=== PATIENT | female | born 1945 | race Caucasian/White ===

== ENCOUNTER → 2016-05-06 | Outpatient (CLI) | payer OTHER ==
[~2016-05-06] MED LIST: ANAS1TAB PO; ASPI81CH37 CHEW; CALC600T10 PO; CEPH-460 PO; FENO160T PO; HUMALOG SQ; LEVEMIR SQ; LEVO137T2 PO; OMEG5CAP PO; PLAV75TA29 PO; SIMV40TA PO; TELM1TAB56 PO; TOPR50TA PO; ZOFR4TAB PO
== END ==
LOC: TMNT 11:38
PROVIDERS: ATTEND Internal Medicine
DX: E11.9 Type 2 diabetes mellitus without complications (principal); E03.9 Hypothyroidism, unspecified; I25.10 Atherosclerotic heart disease of native coronary artery without angina pectoris; M85.80 Other specified disorders of bone density and structure, unspecified site; Z85.3 Personal history of malignant neoplasm of breast
CPT/HCPCS: 97802

== ENCOUNTER 2016-07-23 22:31 | Emergency (ER) | payer OTHER ==
[~2016-07-23] VITALS: Ht 170.2 cm; Wt 65.0 kg
[2016-07-23 22:33] VITALS: BP 150/66; PULSE 85; RESP 16; TEMP 97.8; O2SAT 99
[2016-07-23] MEDS ORDERED: ONDANSETRON HCL 4 MG/2 ML VIAL IV PUSH ONE (23:00)
[2016-07-23] MEDS: MORPHINE SULFATE 4 MG/ML INJ IV PUSH ONE ×2 (23:00→23:04)
[2016-07-23] MEDS ORDERED: ONDANSETRON HCL 4 MG/2 ML VIAL IVP ONE (23:00)
[2016-07-23] MEDS ORDERED: SODIUM CHLORIDE 0.9% FLUSH 10 ML FLUSH IV FLUSH PRN (23:00)
[2016-07-23 23:31] LABS: AUTOMATED NEUTROPHIL # 7.6 TH/MM3 (1.8-7.7); BASOPHIL % 0.4 % (0.0-2.0); EOSINOPHIL # 0.2 TH/MM3 (0-0.4); EOSINOPHIL % 2.4 % (0.0-4.0); HEMATOCRIT 38.6 % (35.0-46.0); HEMO FLAGS DIFF FINAL; LYMPH % 15.7 % (9.0-44.0); LYMPHOCYTE # 1.5 TH/MM3 (1.0-4.8); MEAN CELL VOLUME 83.9 FL (80.0-100.0); MEAN CORPUSCULAR HEMOGLOBIN 28.7 PG (27.0-34.0); MEAN CORPUSCULAR HGB CONC 34.3 % (32.0-36.0); NEUT % 80.5 % (16.0-70.0); PLATELET COUNT 386 TH/MM3 (150-450); RED BLOOD COUNT 4.59 MIL/MM3 (4.00-5.30); RED CELL DISTRIBUTION WIDTH 13.8 % (11.6-17.2); WHITE BLOOD COUNT 9.4 TH/MM3 (4.0-11.0)
[2016-07-24 00:07] LABS: ALKALINE PHOSPHATASE 58 U/L (45-117); ALT (GPT) 19 U/L (10-53); ANION GAP 10 MEQ/L (5-15); AST (GOT) 22 U/L (15-37); BICARBONATE 27.4 MEQ/L (21.0-32.0); BLOOD UREA NITROGEN 45 MG/DL (7-18); CHLORIDE 104 MEQ/L (98-107); GLOMERULAR FILTRATION RATE 20 ML/MIN (>89); POTASSIUM 3.5 MEQ/L (3.5-5.1); SODIUM (NA) 141 MEQ/L (136-145); TOTAL BILIRUBIN ADULT 0.3 MG/DL (0.2-1.0)
--- NOTE | 2016-07-24 00:27 | PD ---
HPI . Abdominal pain Chief Complaint: Abdominal Pain Time Seen by Provider: 22:50 Travel History International Travel<30 days: No Contact w/Intl Traveler<30days: No Traveled to known affect area: No History of Present Illness HPI Patient presents with acute onset of abdominal pain. It started about 7 PM. She states that it is 7-8/10. It is on the left side. It is constant. It is associated with nausea and vomiting. She denies diarrhea. She denies urinary tract symptoms. She has not noticed a fever. She reports no exacerbating or relieving symptoms. PFSH Past Medical History Cancer: Yes (LEFT BREAST W/ LUMPECTOMY) Cardiac Catheterization: Yes Chest Pain: Yes (JAW PAIN) Coronary Artery Disease: Yes Diabetes: Yes Patient Takes Glucophage: Yes Hypertension: Yes Renal Failure: Yes (CKD LEVEL 3) Triglycerides - High: Yes Past Surgical History Appendectomy: Yes Cardiac Surgery: Yes (STENT) Coronary Stent: Yes Oral Surgery: Yes (WISDOM TEETH) Tonsillectomy: Yes Other Surgery: Yes (EYELID SX) Social History Alcohol Use: No Tobacco Use: No Substance Use: No Allergies-Medications (Allergen,Severity, Reaction): Coded Allergies: Demerol (Verified Allergy, Severe, 07/23/16) Levaquin (Verified Allergy, Severe, Hotflash, 07/23/16) Percocet (Verified Allergy, Severe, 07/23/16) Percodan (Verified Allergy, Severe, 07/23/16) Reported Meds & Prescriptions Reported Meds & Active Scripts Active Zofran (Ondansetron HCl) 4 Mg Tab 4 Mg PO Q6HR PRN Keflex (Cephalexin) 500 Mg Cap 500 Mg PO Q8H Reported Fish Oil 1200 mg ([place]-3 Fatty Acids) 1 Cap Cap 1 Caplet PO DAILY Calcium + D3 (Calcium Carbonate-Cholecalciferol) Unknown Strength Tab Unknown Dose PO BID Fenofibrate 160 Mg Tab 160 Mg PO DAILY Levothyroxine (Levothyroxine Sodium) 137 Mcg Tab 137 Mcg PO DAILY Micardis (Telmisartan) 80 Mg Tab 160 Mg PO DAILY Anastrozole 1 Mg Tab 1 Mg PO DAILY Levemir Inj (Insulin Detemir) 1,000 unit/ 10 ML Vial 40-50 Units SQ AM AND PM Do not mix with any other Insulin. Humalog Inj (Insulin Human Lispro) 1,000 Unit/10 Ml Vial 25-35 Units SQ WITH MEALS Max dose at bedtime:( )units; sugars < 70,(0)units; sugars 150-199,(5)units; sugars 200-249,(10)units; sugars 250-299,(15)units; sugars 300-349,(20)units; sugars more than 349,(25)units. Simvastatin 40 Mg Tab 40 Mg PO HS Toprol XL (Metoprolol Succinate) 50 Mg Tab 50 Mg PO DAILY Plavix (Clopidogrel Bisulfate) 75 Mg Tab 75 Mg PO DAILY Aspirin Low Dose (Aspirin) 81 Mg Chew 81 Mg CHEW DAILY Review of Systems Except as stated in HPI: all other systems reviewed are Neg General / Constitutional: No: Fever, Chills Cardiovascular: No: Chest Pain or Discomfort Respiratory: No: Cough, Shortness of Breath Gastrointestinal: Positive: Nausea, Vomiting, Abdominal Pain, No: Diarrhea Genitourinary: No: Urgency, Frequency, Dysuria Physical Exam Narrative GENERAL: Patient is awake and alert. She seems to be in mild distress. SKIN: Warm and dry. HEAD: Atraumatic. Normocephalic. EYES: Pupils equal and round. ENT: No nasal bleeding or discharge. Mucous membranes pink and moist. NECK: Trachea midline. Neck is supple. CARDIOVASCULAR: Regular rate and rhythm. Heart sounds are normal. RESPIRATORY: No accessory muscle use. Lungs are clear with full air movement throughout. GASTROINTESTINAL: Abdomen soft. Left sided abdominal tenderness. Nondistended. Positive bowel sounds. MUSCULOSKELETAL: No obvious deformities. No edema. NEUROLOGICAL: Awake and alert. No obvious cranial nerve deficits. Motor grossly within normal limits. Normal speech. PSYCHIATRIC: Appropriate mood and affect; insight and judgment normal. Data Data Last Documented VS Vital Signs Date Time Temp Pulse Resp B/P Pulse Ox O2 Delivery O2 Flow Rate FiO2 07/23/16 23:08 15 07/23/16 22:33 97.8 85 150/66 99 Room Air Orders Complete Blood Count With Diff (07/23/16 22:50) Comprehensive Metabolic Panel (07/23/16 22:50) Urinalysis - C+S If Indicated (07/23/16 22:50) Iv Access Insert/Monitor (07/23/16 22:50) Ecg Monitoring (07/23/16 22:50) Oximetry (07/23/16 22:50) Morphine Inj (Morphine Inj) (07/23/16 23:00) Ondansetron Inj (Zofran Inj) (07/23/16 23:00) Sodium Chloride 0.9% Flush (Ns Flush) (07/23/16 23:00) Ondansetron Inj (Zofran Inj) (07/23/16 23:00) Ct Abd/Pel W/O Iv Contrast (07/24/16 22:50) Acetaminophen (Tylenol) (07/24/16 01:30) Urine Culture (07/24/16 00:45) Ceftriaxone Inj (Rocephin Inj) (07/24/16 01:30) Sodium Chlor 0.9% 1000 Ml Inj (Ns 1000 M (07/24/16 01:30) Labs Laboratory Tests Test 07/23/16 07/24/16 23:20 00:45 White Blood Count 9.4 TH/MM3 Red Blood Count 4.59 MIL/MM3 Hemoglobin 13.2 GM/DL Hematocrit 38.6 % Mean Corpuscular Volume 83.9 FL Mean Corpuscular Hemoglobin 28.7 PG Mean Corpuscular Hemoglobin 34.3 % Concent Red Cell Distribution Width 13.8 % Platelet Count 386 TH/MM3 Mean Platelet Volume 7.6 FL Neutrophils (%) (Auto) 80.5 % Lymphocytes (%) (Auto) 15.7 % Monocytes (%) (Auto) 1.0 % Eosinophils (%) (Auto) 2.4 % Basophils (%) (Auto) 0.4 % Neutrophils # (Auto) 7.6 TH/MM3 Lymphocytes # (Auto) 1.5 TH/MM3 Monocytes # (Auto) 0.1 TH/MM3 Eosinophils # (Auto) 0.2 TH/MM3 Basophils # (Auto) 0.0 TH/MM3 CBC Comment DIFF FINAL Differential Comment Sodium Level 141 MEQ/L Potassium Level 3.5 MEQ/L Chloride Level 104 MEQ/L Carbon Dioxide Level 27.4 MEQ/L Anion Gap 10 MEQ/L Blood Urea Nitrogen 45 MG/DL Creatinine 2.36 MG/DL Estimat Glomerular Filtration 20 ML/MIN Rate Random Glucose 48 MG/DL Calcium Level 9.8 MG/DL Total Bilirubin 0.3 MG/DL Aspartate Amino Transf 22 U/L (AST/SGOT) Alanine Aminotransferase 19 U/L (ALT/SGPT) Alkaline Phosphatase 58 U/L Total Protein 8.1 GM/DL Albumin 4.2 GM/DL Urine Color LIGHT-RED Urine Turbidity HAZY Urine pH 6.5 Urine Specific [place] 1.014 Urine Protein 100 mg/dL Urine Glucose (UA) NEG mg/dL Urine Ketones NEG mg/dL Urine Occult Blood MOD Urine Nitrite NEG Urine Bilirubin NEG Urine Urobilinogen LESS THAN 2.0 MG/DL Urine Leukocyte Esterase MOD Urine RBC /hpf Urine WBC 79 /hpf Urine Bacteria MANY /hpf Microscopic Urinalysis Comment CULTURE INDICATED MDM Medical Decision Making Medical Screen Exam Complete: Yes Emergency Medical Condition: Yes Differential Diagnosis Differential diagnosis of abdominal pain includes but is not limited to gastritis, pancreatitis, hepatitis, gastroenteritis, gallbladder disease, constipation, urinary retention, UTI, peptic ulcer disease, diverticulitis or appendicitis Narrative Course Patient presents for acute left-sided abdominal pain. CBC & BMP Diagram 07/23/16 23:20 UA is positive for blood, leukocyte esterase, white blood cells and bacteria. CT CONCLUSION: 1. Extensive stranding in the left perinephric region with mild hydronephrosis. No stone is identified and this may reflect recently passed stone or less likely infection. 2. 2 cm left adnexal cyst. Followup ultrasound in 6 months is recommended if clinically indicated. The patient is feeling much better just following Zofran. She did not take morphine because makes her giddy. Her UTI will be treated with Rocephin. I will also give her a liter of fluid. If she continues to feel well, she will be discharged following this. Patient continues to feel well. She looks good. She will be discharged to home. Diagnosis Primary Impression: Pyelonephritis Patient Instructions: General Instructions, Urinary Tract Infection in Women ( [place]) Med/Other Pt SpecificInfo: Prescription(s) given Scripts Ondansetron (Zofran)4 Mg Tab4 Mg PO Q6HR PRN (NAUSEA OR VOMITING) #10 TAB Ref 0 Prov:Kari Hudson MD 07/24/16 Cephalexin (Keflex)500 Mg [id number] Mg PO Q8H #30 CAP Ref 0 Prov:Kari Hudson MD 07/24/16 Disposition: DISCHARGE HOME Condition: Stable Kari Hudson MD Jul 24, 2016 00:27
--- NOTE | 2016-07-24 00:40 | RADRPT ---
EXAM DATE/TIME: 07/24/2016 00:17 [facility] COMPARISON: No previous studies available for comparison. INDICATIONS : Abdominal pain with nausea and vomiting; elevated creatinine and decreased GFR. ORAL CONTRAST: No oral contrast ingested. RADIATION DOSE: 10.43 CTDIvol (mGy) MEDICAL HISTORY : Carcinoma, breast. SURGICAL HISTORY : None. ENCOUNTER: Initial ACUITY: 1 day PAIN SCALE: 7/10 LOCATION: Bilateral lower quadrant TECHNIQUE: Volumetric scanning of the abdomen and pelvis was performed. Using automated exposure control and ad justment of the mA and/or kV according to patient size, radiation dose was kept as low as reasonably achievable to obtain optimal diagnostic quality images. FINDINGS: Examination of the lung bases demonstrates no abnormality. No pleural fluid is identified. No pulmona ry nodules are present. Coronary artery calcifications are present. The liver and spleen are normal i n size and no focal defects are identified. A small hiatal hernia is present. The gallbladder and zhou creas are unremarkable. No intrahepatic or extrahepatic ductal dilatation is seen. The adrenal glands are unremarkable. The right kidney is unremarkable. There is extensive stranding in the perinephric sprays on the left with mild left hydronephrosis and hydroureter to the level of the marrow pelvic ju nction but no stone is seen. This may reflect a recently passed stone. Infection would also be within the differential. There is a small nonobstructing stone in the midpole left kidney measuring 2 mm. Examination of the pelvis demonstrates no evidence of free fluid or pelvic mass. No abnormally enlarg ed inguinal or retroperitoneal lymph nodes are present. The bladder is unremarkable. There is a 2 cm cystic area in the left adnexa which is unusual finding at this age. Followup ultrasound in 6 months is recommended if clinically indicated. CONCLUSION: 1. Extensive stranding in the left perinephric region with mild hydronephrosis. No stone is identifi ed and this may reflect recently passed stone or less likely infection. 2. 2 cm left adnexal cyst. Followup ultrasound in 6 months is recommended if clinically indicated. Rubens Hdez MD on July 24, 2016 at 0:34 Board Certified Radiologist. This report was verified electronically.
[2016-07-24] MEDS ORDERED: SIMV40TA PO (00:58)
[2016-07-24] MEDS ORDERED: TOPR50TA PO (00:58)
[2016-07-24] MEDS ORDERED: ASPI81CH37 CHEW (00:58)
[2016-07-24] MEDS ORDERED: FENO160T PO (00:58)
[2016-07-24] MEDS ORDERED: OMEG5CAP PO (00:58)
[2016-07-24] MEDS ORDERED: LEVO137T2 PO (00:58)
[2016-07-24] MEDS ORDERED: LEVEMIR SQ (00:58)
[2016-07-24] MEDS ORDERED: CALC600T10 PO (00:58)
[2016-07-24] MEDS ORDERED: ANAS1TAB PO (00:58)
[2016-07-24] MEDS ORDERED: PLAV75TA29 PO (00:58)
[2016-07-24] MEDS ORDERED: HUMALOG SQ (00:58)
[2016-07-24] MEDS ORDERED: TELM1TAB56 PO (00:58)
[2016-07-24 01:24] LABS: BACTERIA, URINE MANY /hpf; BLOOD, URINE MOD (NEG); COMMENT (UR) CULTURE INDICATED; CULTURE IF INDICATED CULTURE INDICATED; GLUCOSE,URINE NEG (NEG); KETONE, URINE NEG (NEG); NITRITE,URINE NEG (NEG); PH, URINE 6.5 (5.0-8.5)
[2016-07-24 01:25] LABS: URINE COLOR LIGHT-RED (YELLW/STRAW)
[2016-07-24] MEDS ORDERED: ACETAMINOPHEN 325 MG TAB PO ONE (01:30)
[2016-07-24] MEDS ORDERED: cefTRIAXone INJ 1,000 MG in SODIUM CHLORIDE 0.9% INJ 100 ML IV ONE (01:30)
[2016-07-24] MEDS ORDERED: SODIUM CHLOR 0.9% 1000 ML INJ 1,000 ML IV ONE (01:30)
[2016-07-24] MEDS ORDERED: ZOFR4TAB PO (01:33)
[2016-07-24] MEDS ORDERED: CEPH-460 PO (01:33)
== END 2016-07-24 03:13 | disposition home or self-care (01) ==
LOC: NEPC 22:31
DX: N12 Tubulo-interstitial nephritis, not specified as acute or chronic (principal); R11.2 Nausea with vomiting, unspecified; I25.10 Atherosclerotic heart disease of native coronary artery without angina pectoris; E11.9 Type 2 diabetes mellitus without complications; I12.9 Hypertensive chronic kidney disease with stage 1 through stage 4 chronic kidney disease, or unspecified chronic kidney disease; N18.3 Chronic kidney disease, stage 3 (moderate); B96.20 Unspecified Escherichia coli [E. coli] as the cause of diseases classified elsewhere
CPT/HCPCS: 74176; 80053; 81001; 85025; 87077; 87086; 87186; 96374; 96375; 99284; J0696; J2405; J7030; J2270